=== PATIENT | male | born 1950 | race African-American/Black ===

== ENCOUNTER 2019-01-13 12:05 | Inpatient (IN) | payer MEDICARE, MEDICAID ==
[~2019-01-13] VITALS: Ht 175.3 cm; Wt 69.9 kg
[~2019-01-13 12:05] MED LIST: AMLO2.5T2 PO; FLUO10CA25 PO; LISI-650 PO; LOPHC5 PO; LOV40 SUBCUT; METF500T PO; SITA50TA3 PO
[2019-01-13] MEDS ORDERED: NITROGLYCERIN 0.4MG TABLET SL SL PRN (12:45)
[2019-01-13 13:26] LABS: BASOPHILS % 0.6 % (0.0-2.0); EOSINOPHILS % 4.5 % (0.0-5.0); HEMATOCRIT. 30.7 % (42.0-52.0); HEMOGLOBIN. 10.6 g/dL (14.0-18.0); LYMPHOCYTES % 20.9 % (20.0-50.0); MEAN CORPUSCULAR HEMOGLOBIN 30.6 pg (28.0-32.0); MEAN CORPUSCULAR VOLUME 88.7 fL (80.0-94.0); MONOCYTES % 7.5 % (2.0-8.0); NEUTROPHILS % 66.5 % (40.0-76.0); PLATELET 218 x1000/uL (130-400); RED BLOOD CELL COUNT 3.46 mill/uL (4.7-6.1)
[2019-01-13 13:29] LABS: CHLORIDE 107 mEq/L (98-107)
[2019-01-13 13:32] LABS: D-DIMER 0.38 mg/L FEU (<0.50); INR 1.1; PARTIAL THROMBOPLASTIN TIME 23.4 sec (23.4-31.0); PROTHROMBIN TIME 11.1 sec (9.6-11.0)
[2019-01-13 23:30] VITALS: BP 113/67
[2019-01-14] MEDS ORDERED: MORPHINE SULFATE 2 MG/ML CPJ (NOT FOR IM USE) IV PRN (01:45)
[2019-01-14] MEDS ORDERED: DEXTROSE 50% WATER 50ML SYRINGE IV PRN (01:45)
[2019-01-14 06:00] VITALS: BP 143/81
[2019-01-14 06:52] LABS: CHLORIDE 105 mEq/L (98-107)
[2019-01-14 07:00] LABS: LDL CHOLESTEROL 55 mg/dL (5-100)
[2019-01-14 07:02] LABS: CREATINE KINASE 264 IU/L (39-308); HDL CHOLESTEROL 50 mg/dL (40-59)
[2019-01-14 07:05] LABS: CREATINE KINASE MB FRACTION 3.1 ng/mL (0.5-3.6)
[2019-01-14] MEDS: BLOOD SUGAR DIAGNOSTIC STRIP TEST SCH ×4 (07:20→21:00)
[2019-01-14 08:00] VITALS: BP 154/87
[2019-01-14] MEDS ORDERED: MEDICATION NOT ON FORMULARY EA (Sitagliptin Phosphate (Januvia) 1 TAB) PO SCH (09:00)
[2019-01-14] MEDS: LISINOPRIL 5MG TABLET PO SCH (09:33)
[2019-01-14] MEDS: FLUOXETINE HCL 10 MG CAPSULE PO SCH ×2 (09:34→09:35)
[2019-01-14] MEDS: ASPIRIN 81MG TABLET PO SCH (09:35)
[2019-01-14] MEDS: CLOPIDOGREL 75MG TABLET PO SCH (09:35)
[2019-01-14] MEDS: METOPROLOL TARTRATE 50MG TABLET PO SCH ×2 (09:36→21:00)
[2019-01-14] MEDS: LINAGLIPTIN 5MG TABLET PO SCH (09:36)
[2019-01-14] MEDS: AMLODIPINE 2.5MG TABLET PO SCH (09:36)
[2019-01-14] MEDS: METFORMIN HCL 500MG TABLET PO SCH ×2 (09:36→18:10)
[2019-01-14] MEDS: ENOXAPARIN 40MG/0.4ML SYR SUBCUT SCH (09:37)
[2019-01-14] MEDS: INSULIN LISPRO 100 UNITS/ML SUBCUT SCH ×4 (09:49→21:00)
[2019-01-14 12:00] VITALS: BP 143/84
[2019-01-14] MEDS ORDERED: REGADENOSON 0.4 MG/5 ML IV SCH (12:45)
[2019-01-14 13:14] LABS: CREATINE KINASE 265 IU/L (39-308)
[2019-01-14 13:15] LABS: CREATINE KINASE MB FRACTION 3.3 ng/mL (0.5-3.6)
[2019-01-14 16:00] VITALS: BP 163/99
[2019-01-14 20:00] VITALS: BP 143/69
[2019-01-14] MEDS ORDERED: ATORVASTATIN CALCIUM 40MG TABLET PO SCH (21:00)
[2019-01-14 21:48] LABS: CLARITY URINE CLEAR (CLEAR); COLOR URINE YELLOW (YELLOW); KETONES URINE TRACE (NEGATIVE); LEUKOCYTE ESTERASE URINE NEGATIVE (NEGATIVE); NITRITE URINE NEGATIVE (NEGATIVE); OCCULT BLOOD URINE NEGATIVE (NEGATIVE); PH URINE 6.5 (4.5-8.0); PROTEIN URINE NEGATIVE (NEGATIVE); SPECIFIC GRAVITY URINE 1.023 (1.005-1.030); UROBILINOGEN URINE 0.2 E.U./dL (0.2-1.0)
[2019-01-14 22:07] LABS: *AMPHETAMINES SCREEN URINE NEGATIVE (NEGATIVE); *BARBITURATES SCREEN URINE NEGATIVE (NEGATIVE); *BENZODIAZEPINES SCREEN URINE NEGATIVE (NEGATIVE); *COCAINE SCREEN URINE NEGATIVE (NEGATIVE)
[2019-01-14 22:08] LABS: CANNABINOID URINE SCREEN NEGATIVE (NEGATIVE); METHADONE URINE SCREEN NEGATIVE (NEGATIVE); OPIATES URINE SCREEN NEGATIVE (NEGATIVE); PHENCYCLIDINE URINE SCREEN NEGATIVE (NEGATIVE)
[2019-01-15 00:05] VITALS: BP 113/62
[2019-01-15 04:00] VITALS: BP 149/85
[2019-01-15] MEDS: BLOOD SUGAR DIAGNOSTIC STRIP TEST SCH ×2 (05:53→12:45)
[2019-01-15 06:47] LABS: BASOPHILS % 0.3 % (0.0-2.0); EOSINOPHILS % 3.4 % (0.0-5.0); HEMATOCRIT. 32.2 % (42.0-52.0); HEMOGLOBIN. 11.2 g/dL (14.0-18.0); LYMPHOCYTES % 19.2 % (20.0-50.0); MEAN CORPUSCULAR HEMOGLOBIN 30.2 pg (28.0-32.0); MEAN CORPUSCULAR VOLUME 87.1 fL (80.0-94.0); MEAN PLATELET VOLUME 8.1 fl (7.4-10.4); MONOCYTES % 7.7 % (2.0-8.0); NEUTROPHILS % 69.4 % (40.0-76.0); PLATELET 223 x1000/uL (130-400)
[2019-01-15 06:51] LABS: CHLORIDE 106 mEq/L (98-107)
[2019-01-15 08:00] VITALS: BP 159/95
[2019-01-15] MEDS: METFORMIN HCL 500MG TABLET PO SCH (08:10)
[2019-01-15] MEDS: INSULIN LISPRO 100 UNITS/ML SUBCUT SCH ×2 (08:10→12:46)
[2019-01-15] MEDS ORDERED: REGADENOSON 0.4 MG/5 ML IV ONE (09:14)
[2019-01-15] MEDS: LISINOPRIL 5MG TABLET PO SCH (10:37)
[2019-01-15] MEDS: CLOPIDOGREL 75MG TABLET PO SCH (10:37)
[2019-01-15] MEDS: ASPIRIN 81MG TABLET PO SCH (10:38)
[2019-01-15] MEDS: METOPROLOL TARTRATE 50MG TABLET PO SCH (10:38)
[2019-01-15] MEDS: LINAGLIPTIN 5MG TABLET PO SCH (10:38)
[2019-01-15] MEDS: AMLODIPINE 2.5MG TABLET PO SCH (10:38)
[2019-01-15] MEDS: ENOXAPARIN 40MG/0.4ML SYR SUBCUT SCH (10:39)
[2019-01-15 12:00] VITALS: BP 144/80
[2019-01-15 15:09] VITALS: BP 144/80
== END 2019-01-15 17:55 | disposition home or self-care (01) | DRG 74 ==
LOC: ER 13:35 → 7WST 18:35 → EDBEDREQTM 18:40 → ENRESERV 21:12
PROVIDERS: ADMIT Internal Medicine; ATTEND Internal Medicine
DX: G90.8 Other disorders of autonomic nervous system (principal); E44.1 Mild protein-calorie malnutrition; K92.0 Hematemesis; M94.0 Chondrocostal junction syndrome [Tietze]; D64.9 Anemia, unspecified; E11.319 Type 2 diabetes mellitus with unspecified diabetic retinopathy without macular edema; E78.5 Hyperlipidemia, unspecified; F41.8 Other specified anxiety disorders; G40.909 Epilepsy, unspecified, not intractable, without status epilepticus; J45.909 Unspecified asthma, uncomplicated; Z79.82 Long term (current) use of aspirin; R31.9 Hematuria, unspecified; R35.1 Nocturia; J32.9 Chronic sinusitis, unspecified; E78.00 Pure hypercholesterolemia, unspecified; M19.90 Unspecified osteoarthritis, unspecified site; G43.909 Migraine, unspecified, not intractable, without status migrainosus; H54.8 Legal blindness, as defined in USA; I10 Essential (primary) hypertension; I25.10 Atherosclerotic heart disease of native coronary artery without angina pectoris; I44.0 Atrioventricular block, first degree; Z95.5 Presence of coronary angioplasty implant and graft; Z86.11 Personal history of tuberculosis; Z79.84 Long term (current) use of oral hypoglycemic drugs; Z82.49 Family history of ischemic heart disease and other diseases of the circulatory system; Z87.11 Personal history of peptic ulcer disease; Z88.6 Allergy status to analgesic agent; Z88.8 Allergy status to other drugs, medicaments and biological substances; Z68.22 Body mass index [BMI] 22.0-22.9, adult
CPT/HCPCS: 36415; 71045; 78452; 80048; 80061; 80305; 81003; 82550; 82553; 82962; 83036; 83880; 84484; 85379; 93005; 93017; 93306; 99285; A9500; J1650; J1815; J2785